=== PATIENT | female | born 1945 | race Caucasian/White ===

== ENCOUNTER 2016-12-27 10:36 | Inpatient (IN) | payer BC, MEDICARE ==
[2016-12-27] MEDS ORDERED: Metoprolol Tartrate 25 MG Tab PO ONE (10:45)
--- NOTE | 2016-12-27 11:36 | EDM.PDOC ---
ED HPI GENERAL MEDICAL PROBLEM - General Time Seen by Provider: 12/27/16 11:15 Source of Information: Reports: Patient History Limitations: Reports: No Limitations - History of Present Illness INITIAL COMMENTS - FREE TEXT/NARRATIVE: According to patient she claims that she has been short of breath for past 2 wks now. She has been feeling tired and weak. She used to be short of breath with exertion, but now feels SOB with minimal exertion. Also has been c/o right lower chest pain with deep breathing. Mild cough on and off. No fever or chills. No Wheezing, palpitations. No nausea or vomiting. Today she has been sweating a lot. As her symptoms have got gradually worse over the 2 wks, family has brought her into emergency room for workup. Pt has had lung cancer and has had right lower lung lobectomy and has been following up with Dr. Mathews. Her PCP is Dr. Pena. Duration: Week(s): (2) Severity: Mild Improves with: Reports: None Worsens with: Reports: None Associated Symptoms: Reports: Chest Pain, Shortness of Breath. Denies: Confusion, Cough, Fever/Chills, Nausea/Vomiting, Rash, Seizure ED ROS GENERAL - Review of Systems Review Of Systems: See Below Constitutional: Reports: Weakness, Fatigue. Denies: Fever, Chills HEENT: Denies: Throat Pain, Throat Swelling Respiratory: Reports: Shortness of Breath, Pleuritic Chest Pain, Cough. Denies : Wheezing, Sputum Cardiovascular: Denies: Chest Pain, Lightheadedness GI/Abdominal: Denies: Abdominal Pain, Hematochezia, Melena, Nausea, Vomiting : Denies: Dysuria, Flank Pain Musculoskeletal: Denies: Joint Pain, Joint Swelling Skin: Denies: Pruritis, Rash Neurological: Denies: Headache, Numbness, Tingling Psychiatric: Reports: Anxiety. Denies: Agitation, Confusion ED EXAM, GENERAL - Physical Exam Exam: See Below Exam Limited By: No Limitations General Appearance: Alert, WD/WN, No Apparent Distress, Anxious Eye Exam: Bilateral Eye: EOMI, PERRL Ears: Normal External Exam, Normal Canal, Hearing Grossly Normal, Normal TMs Ear Exam: Bilateral Ear: Auricle Normal, Canal Normal, TM normal Nose: Normal Inspection, Normal Mucosa, No Blood Throat/Mouth: Normal Inspection, Normal Lips, Normal Teeth, Normal Gums, Normal Oropharynx, Normal Voice, No Airway Compromise Head: Atraumatic, Normocephalic Neck: Normal Inspection, Supple, Non-Tender, Full Range of Motion Respiratory/Chest: No Respiratory Distress, Lungs Clear, No Accessory Muscle Use , Decreased Breath Sounds (right lower lobe and anterior chest), Other (tender over the right costal margin to pressure. no crepitus felt) Cardiovascular: Normal Peripheral Pulses, No Gallop, No JVD, No Murmur, No Rub, Tachycardia (130s) Peripheral Pulses: 2+: Radial (L), Radial (R) GI/Abdominal: Normal Bowel Sounds, Soft, Non-Tender, No Organomegaly, No Distention, No Abnormal Bruit, No Mass Extremities: Normal Inspection, Normal Range of Motion, Non-Tender, Normal Capillary Refill, Pedal Edema (1+ around the ankle pitting type) Skin Exam: Warm Course - Vital Signs Text/Narrative:: Pt's CBC shows white count of 13.2 and her Chest xray almeida show infiltrates in right middle lobe and upper lobe. Her BMP appears normal. Her EKG is in SInus tachy. Torponin is Negative. TSH normal. BNP mildly elevated, probably form her tachycardia. Pt had pneumonia with hypxia. Her SPO2 on room air is 91 %. She did receive lopressor 25mg once initially with concern of PSVT or WA. Family has been reassured and plan is to admit patient to hospital and start her on rocephin and zithromax regime. Incentive spirometry and deep breathing exercise. Also I do not have her pervious results and work up. But Her total bili is 3.6 , with raised ALT,AST and ALK. I am not sure if she is having metastatic lung cancer or has an intrinsic liver disease. Will plan CT abdomen and chest when patient is more stable. I have discussed this with family and patient. - Orders/Labs/Meds Orders: Active Orders 24 hr Category Date Time Status Patient Status [ADT] Routine ADT 12/27/16 12:19 Ordered Bedrest Bathroom Privileges [RC] ASDIRECTED Care 12/27/16 12:19 Ordered EKG Documentation Completion [RC] ASDIRECTED Care 12/27/16 11:30 Active Height and Weight [RC] UPON Care 12/27/16 12:19 Ordered Incentive Spirometry [RT Incentive Spirometry] [RC] Care 12/27/16 12:23 Ordered ASDIRECTED Intake and Output [RC] QSHIFT Care 12/27/16 12:21 Ordered Oxygen Therapy [RC] PRN Care 12/27/16 12:19 Ordered VTE/DVT Education [RC] Per Unit Routine Care 12/27/16 12:19 Ordered Vital Signs [RC] Q4H Care 12/27/16 12:19 Ordered Regular Diet [DIET] Diet 12/27/16 Lunch Ordered Chest 1V Frontal [CR] Stat Exams 12/27/16 11:30 Taken CBC WITH AUTO DIFF [HEME] Routine Lab 12/28/16 08:00 Ordered Azithromycin [Zithromax] 500 mg Med 12/27/16 12:30 Ordered Sodium Chloride 0.9% [Normal Saline] 250 ml IV Q24H Sodium Chloride 0.9% [Saline Flush] Med 12/27/16 12:19 Ordered 10 ml FLUSH ASDIRECTED PRN cefTRIAXone [Rocephin] 1 gm Med 12/27/16 13:00 Ordered Sodium Chloride 0.9% [Normal Saline] 50 ml IV Q12H guaiFENesin [Robitussin] Med 12/27/16 12:30 Ordered 400 mg PO Q6H Peripheral IV Insertion Adult [OM.PC] Routine Oth 12/27/16 12:19 Ordered Resuscitation Status Routine Resus Stat 12/27/16 12:19 Ordered Medication Orders Guaifenesin (Robitussin) 400 mg PO Q6H ESTER Azithromycin 500 mg/ Sodium (Chloride) 250 mls @ 250 mls/hr IV Q24H ESTER Ceftriaxone Sodium 1 gm/ (Sodium Chloride) 50 mls @ 100 mls/hr IV Q12H ESTER Sodium Chloride (Saline Flush) 10 ml FLUSH ASDIRECTED PRN PRN Reason: Keep Vein Open Labs: Laboratory Tests 12/27/16 12/27/16 12/27/16 Range/Units 11:42 11:42 11:42 WBC (4.0-11.0) K/uL RBC (3.80-5.80) M/uL Hgb (11.5-16.5) g/dL Hct (37.0-47.0) % MCV (76-96) fL MCH (27.0-32.0) pg MCHC (31.0-35.0) g/dL RDW (11.0-16.0) % Plt Count (150-500) K/uL MPV (6.0-10.0) fL Neut % (Auto) (45.0-70.0) % Lymph % (Auto) (20.0-40.0) % [place] % (Auto) (3.0-10.0) % Eos % (Auto) (1.0-5.0) % Baso % (Auto) (0.0-0.5) % Neut # (Auto) (2.00-7.50) K/uL Lymph # (Auto) (1.50-4.00) K/uL [place] # (Auto) (0.20-0.80) K/uL Eos # (Auto) (0.04-0.40) K/uL Baso # (Auto) (0.02-0.10) K/uL Sodium 137 (136-145) mmol/L Potassium 4.5 (3.5-5.1) mmol/L Chloride 101 (98-107) mmol/L Carbon Dioxide 26.8 (21.0-32.0) mmol/L Anion Gap 13.7 (5.0-15.0) mmol/L BUN 18 (8-26) mg/dL Creatinine 1.18 H (0.55-1.02) mg/dL Est Cr Clr Drug Dosing TNP Estimated GFR (MDRD) 45 L (>60) MLS/MIN BUN/Creatinine Ratio 15.3 (6-25) Glucose 123 H (74-100) mg/dL Calcium 10.2 H (8.5-10.1) mg/dL Total Bilirubin 3.6 H (0.0-1.0) mg/dL AST 240 H (15-37) U/L ALT 133 H (12-78) U/L Alkaline Phosphatase 438 H (46-116) U/L Troponin I < 0.017 (0.000-0.060) ng/mL B-Natriuretic Peptide 1010 H (0-125) pg/mL Total Protein 7.9 (6.4-8.2) g/dL Albumin 2.7 L (3.4-5.0) g/dL Globulin 5.2 H (2.2-4.2) g/dL Albumin/Globulin Ratio 0.5 L (0.8-2.0) TSH, Ultra Sensitive 2.578 (0.358-3.740) uIU/mL 12/27/16 Range/Units 11:44 WBC 13.2 H (4.0-11.0) K/uL RBC 5.25 (3.80-5.80) M/uL Hgb 16.3 (11.5-16.5) g/dL Hct 47.5 H (37.0-47.0) % MCV 91 (76-96) fL MCH 31.0 (27.0-32.0) pg MCHC 34.3 (31.0-35.0) g/dL RDW 14.2 (11.0-16.0) % Plt Count 131 L (150-500) K/uL MPV 10.3 H (6.0-10.0) fL Neut % (Auto) 84.0 H (45.0-70.0) % Lymph % (Auto) 11.1 L (20.0-40.0) % [place] % (Auto) 4.5 (3.0-10.0) % Eos % (Auto) 0.2 L (1.0-5.0) % Baso % (Auto) 0.2 (0.0-0.5) % Neut # (Auto) 11.09 H (2.00-7.50) K/uL Lymph # (Auto) 1.46 L (1.50-4.00) K/uL [place] # (Auto) 0.59 (0.20-0.80) K/uL Eos # (Auto) 0.02 L (0.04-0.40) K/uL Baso # (Auto) 0.02 (0.02-0.10) K/uL Sodium (136-145) mmol/L Potassium (3.5-5.1) mmol/L Chloride (98-107) mmol/L Carbon Dioxide (21.0-32.0) mmol/L Anion Gap (5.0-15.0) mmol/L BUN (8-26) mg/dL Creatinine (0.55-1.02) mg/dL Est Cr Clr Drug Dosing Estimated GFR (MDRD) (>60) MLS/MIN BUN/Creatinine Ratio (6-25) Glucose (74-100) mg/dL Calcium (8.5-10.1) mg/dL Total Bilirubin (0.0-1.0) mg/dL AST (15-37) U/L ALT (12-78) U/L Alkaline Phosphatase (46-116) U/L Troponin I (0.000-0.060) ng/mL B-Natriuretic Peptide (0-125) pg/mL Total Protein (6.4-8.2) g/dL Albumin (3.4-5.0) g/dL Globulin (2.2-4.2) g/dL Albumin/Globulin Ratio (0.8-2.0) TSH, Ultra Sensitive (0.358-3.740) uIU/mL Meds: Medications Generic Name Dose Route Start Last Admin Trade Name Freq PRN Reason Stop Dose Admin Guaifenesin 400 mg 12/27/16 12:30 Robitussin PO Q6H ESTER Azithromycin 500 mg/ Sodium 250 mls @ 250 mls/hr 12/27/16 12:30 Chloride IV Q24H ESTER Ceftriaxone Sodium 1 gm/ 50 mls @ 100 mls/hr 12/27/16 13:00 Sodium Chloride IV Q12H ESTER Sodium Chloride 10 ml 12/27/16 12:19 Saline Flush FLUSH ASDIRECTED PRN Keep Vein Open Departure - Departure Time of Disposition: 12:30 Disposition: Admitted As Inpatient 66 Condition: Fair Clinical Impression: Pneumonia, Liver function abnormality - Discharge Information - Problem List & Annotations (1) Liver function abnormality SNOMED Code(s): 31414369 Code(s): K76.89 - OTHER SPECIFIED DISEASES OF LIVER Status: Acute Current Visit: Yes (2) Pneumonia SNOMED Code(s): 662318796 Code(s): J18.9 - PNEUMONIA, UNSPECIFIED ORGANISM Status: Acute Current Visit: Yes - Problem List Review Problem List Initiated/Reviewed/Updated: Yes - My Orders Last 24 Hours: My Active Orders 12/27/16 11:30 EKG Documentation Completion [RC] ASDIRECTED Chest 1V Frontal [CR] Stat 12/27/16 12:19 Patient Status [ADT] Routine Bedrest Bathroom Privileges [RC] ASDIRECTED Height and Weight [RC] UPON Oxygen Therapy [RC] PRN VTE/DVT Education [RC] Per Unit Routine Vital Signs [RC] Q4H Sodium Chloride 0.9% [Saline Flush] 10 ml FLUSH ASDIRECTED PRN Peripheral IV Insertion Adult [OM.PC] Routine Resuscitation Status Routine 12/27/16 12:21 Intake and Output [RC] QSHIFT 12/27/16 12:23 Incentive Spirometry [RT Incentive Spirometry] [RC] ASDIRECTED 12/27/16 12:30 Azithromycin [Zithromax] 500 mg Sodium Chloride 0.9% [Normal Saline] 250 ml IV Q24H guaiFENesin [Robitussin] 400 mg PO Q6H 12/27/16 13:00 cefTRIAXone [Rocephin] 1 gm Sodium Chloride 0.9% [Normal Saline] 50 ml IV Q12H 12/27/16 Lunch Regular Diet [DIET] 12/28/16 08:00 CBC WITH AUTO DIFF [HEME] Routine - Assessment/Plan Last 24 Hours: My Active Orders 12/27/16 11:30 EKG Documentation Completion [RC] ASDIRECTED Chest 1V Frontal [CR] Stat 12/27/16 12:19 Patient Status [ADT] Routine Bedrest Bathroom Privileges [RC] ASDIRECTED Height and Weight [RC] UPON Oxygen Therapy [RC] PRN VTE/DVT Education [RC] Per Unit Routine Vital Signs [RC] Q4H Sodium Chloride 0.9% [Saline Flush] 10 ml FLUSH ASDIRECTED PRN Peripheral IV Insertion Adult [OM.PC] Routine Resuscitation Status Routine 12/27/16 12:21 Intake and Output [RC] QSHIFT 12/27/16 12:23 Incentive Spirometry [RT Incentive Spirometry] [RC] ASDIRECTED 12/27/16 12:30 Azithromycin [Zithromax] 500 mg Sodium Chloride 0.9% [Normal Saline] 250 ml IV Q24H guaiFENesin [Robitussin] 400 mg PO Q6H 12/27/16 13:00 cefTRIAXone [Rocephin] 1 gm Sodium Chloride 0.9% [Normal Saline] 50 ml IV Q12H 12/27/16 Lunch Regular Diet [DIET] 12/28/16 08:00 CBC WITH AUTO DIFF [HEME] Routine Assessment:: Right sided pneumonia With altered liver functions Plan: Pt's CBC shows white count of 13.2 and her Chest xray almeida show infiltrates in right middle lobe and upper lobe. Her BMP appears normal. Her EKG is in SInus tachy. Torponin is Negative. TSH normal. BNP mildly elevated, probably form her tachycardia. Pt had pneumonia with hypxia. Her SPO2 on room air is 91 %. She did receive lopressor 25mg once initially with concern of PSVT or WA.Family has been reassured and plan is to admit patient to hospital and start her on rocephin and zithromax regime. Incentive spirometry and deep breathing exercise. Also I do not have her pervious results and work up. But Her total bili is 3.6 , with raised ALT,AST and ALK. I am not sure if she is having metastatic lung cancer or has an intrinsic liver disease. Will plan CT abdomen and chest when patient is more stable. I have discussed this with family and patient.
[2016-12-27] MEDS ORDERED: Sodium Chloride 0.9% 10 ML Syringe FLUSH PRN (12:19)
[2016-12-27] MEDS ORDERED: Azithromycin 500 MG in Sodium Chloride 0.9% 250 ML IV SCH ×2 (12:30→14:00)
[2016-12-27] MEDS ORDERED: guaiFENesin 100 MG/5 ML Soln 10 ML UD Cup PO SCH (12:30)
[2016-12-27] MEDS ORDERED: cefTRIAXone 1 GM in Sodium Chloride 0.9% 50 ML IV SCH (13:00)
[2016-12-27] MEDS ORDERED: cefTRIAXone 1 GM in Sodium Chloride 0.9% 100 ML IV SCH ×2 (13:51→14:00)
[2016-12-27] MEDS: cefTRIAXone 1 GM in Sodium Chloride 0.9% 100 ML IV SCH (14:35)
[2016-12-27] MEDS ORDERED: guaiFENesin 100 MG/5 ML Soln 10 ML UD Cup PO PRN (15:00)
--- NOTE | 2016-12-27 17:46 | CR ---
DATE OF SERVICE: 12/27/16 CLINICAL DATA: Shortness of breath AP PORTABLE CHEST: Comparison is made to a prior exam dated 06/04/05. There are surgical changes in the right hemithorax. There is marked eventration of the right hemidiaphragm. There is infiltrate and consolidation in the right lower lung. Pneumonia should be considered. There is mild increased density in the left lung base adjacent to the left hemidiaphragm consistent with basilar atelectasis or infiltrate. The left lung is otherwise clear. There is blunting of the right costophrenic angle consistent with a small right pleural effusion. The exam is otherwise unchanged from the prior. [id number] [facility]
[2016-12-27] MEDS: Acetaminophen/HYDROcodone 325-10 MG Tab PO PRN (18:19)
[2016-12-27] MEDS ORDERED: Diclofenac Sodium 1% Gel 100 GM Tube TOP SCH (20:00)
[2016-12-27] MEDS: Pravastatin 40 MG Tab PO SCH (20:08)
[2016-12-27] MEDS: Amitriptyline 25 MG Tab PO SCH (20:08)
[2016-12-27] MEDS: Fluticasone/Salmeterol 500-50 MCG Inhalation Powder 14/Diskus INH SCH (20:08)
[2016-12-27] MEDS: LORazepam 1 MG Tab PO PRN (22:21)
[2016-12-28] MEDS: Omeprazole 40 MG Cap.CR PO SCH (06:21)
[2016-12-28] MEDS: cefTRIAXone 1 GM in Sodium Chloride 0.9% 100 ML IV SCH ×2 (07:37→20:03)
[2016-12-28] MEDS: Calcium Carbonate/Vitamin D3 1500 MG-400 Units Tab PO SCH (07:50)
[2016-12-28] MEDS: Multivitamins with Iron/Calcium/Folic Acid/Minerals Tab PO SCH (07:50)
[2016-12-28] MEDS: Roflumilast 500 MCG Tab PO SCH (07:51)
[2016-12-28] MEDS: Aspirin 81 MG Tab.EC PO SCH (07:51)
[2016-12-28] MEDS: Fluticasone/Salmeterol 500-50 MCG Inhalation Powder 14/Diskus INH SCH ×2 (07:52→19:59)
[2016-12-28] MEDS: Tiotropium Inhaler 18 MCG Inhalation Powder Cap Kit of 5 INH SCH (07:52)
[2016-12-28] MEDS: Sertraline 100 MG Tab PO SCH (07:53)
[2016-12-28] MEDS ORDERED: Sertraline 50 MG Tab PO SCH (08:00)
[2016-12-28] MEDS: Azithromycin 500 MG in Sodium Chloride 0.9% 250 ML IV SCH (08:49)
[2016-12-28] MEDS ORDERED: Metoprolol Tartrate 25 MG Tab ONE (09:04)
[2016-12-28] MEDS: Metoprolol Tartrate 25 MG Tab PO SCH ×2 (09:25→20:02)
--- NOTE | 2016-12-28 10:37 | PCM.PN ---
- General Info Date of Service: 12/28/16 Subjective Update: Pt claims she feels better than yesterday, still tired and feels SOB with exertion. Her heart rate is in 120-130s. No fever. Has been able to do 1000ccs on incentive spirometry. HAs vague pain in right upper quadrant. Has been tolerating oral diet well. On Iv zithromax and rocpehin. Functional Status: Reports: Pain Controlled, Tolerating Diet, Ambulating, Urinating, Incentive Spirometry - Review of Systems General: Reports: Weakness, Fatigue. Denies: Fever, Night Sweats HEENT: Denies: Headaches, Sinus Congestion Pulmonary: Reports: Shortness of Breath, Cough Cardiovascular: Denies: Chest Pain, Lightheadedness Gastrointestinal: Reports: Abdominal Pain (RUQ). Denies: Nausea, Vomiting Genitourinary: Denies: Dysuria, Frequency Musculoskeletal: Denies: Joint Pain, Joint Swelling Skin: Denies: Pruritis, Rash Neurological: Denies: Confusion, Dizziness, Headache - Patient Data Vitals - Most Recent: Last Vital Signs Temp 97.6 F 12/28/16 08:00 Pulse 130 H 12/28/16 08:00 Resp 20 12/28/16 08:00 BP 124/61 12/28/16 08:00 Pulse Ox 95 12/28/16 08:00 Weight - Most Recent: 73.936 kg I&O - Last 24 Hours: Intake & Output 12/27/16 12/28/16 12/28/16 22:59 06:59 14:59 Intake Total 350 520 Output Total 0 Balance 350 520 Lab Results Last 24 Hours: Laboratory Results - last 24 hr 12/28/16 Range/Units 09:10 WBC 11.0 (4.0-11.0) K/uL RBC 4.61 (3.80-5.80) M/uL Hgb 14.5 (11.5-16.5) g/dL Hct 42.2 (37.0-47.0) % MCV 92 (76-96) fL MCH 31.5 (27.0-32.0) pg MCHC 34.4 (31.0-35.0) g/dL RDW 14.5 (11.0-16.0) % Plt Count 120 L (150-500) K/uL MPV 10.4 H (6.0-10.0) fL Neut % (Auto) 82.1 H (45.0-70.0) % Lymph % (Auto) 12.8 L (20.0-40.0) % Gem % (Auto) 4.4 (3.0-10.0) % Eos % (Auto) 0.4 L (1.0-5.0) % Baso % (Auto) 0.3 (0.0-0.5) % Neut # (Auto) 9.06 H (2.00-7.50) K/uL Lymph # (Auto) 1.41 L (1.50-4.00) K/uL Gem # (Auto) 0.48 (0.20-0.80) K/uL Eos # (Auto) 0.04 (0.04-0.40) K/uL Baso # (Auto) 0.03 (0.02-0.10) K/uL Med Orders - Current: Current Medications Hydrocodone Bitart/Acetaminophen ([place] 325-10 Mg) 1 tab PO Q6H PRN PRN Reason: MODERATE PAIN Last Admin: 12/27/16 18:19 Dose: 1 tab Albuterol (Ventolin Hfa) 8 gm INH Q4H PRN PRN Reason: Shortness of Breath Amitriptyline HCl (Elavil) 100 mg PO BEDTIME [facility] Last Admin: 12/27/16 20:08 Dose: 100 mg Aspirin (Halfprin) 81 mg PO DAILY [facility] Last Admin: 12/28/16 07:51 Dose: 81 mg Calcium Carbonate (Caltrate 600+D 1500 Mg-400 Units) 1 tab PO DAILY ESTER Last Admin: 12/28/16 07:50 Dose: 1 tab Guaifenesin (Robitussin) 400 mg PO Q6H PRN PRN Reason: cough Azithromycin 500 mg/ Sodium (Chloride) 250 mls @ 250 mls/hr IV DAILY ESTER Last Admin: 12/28/16 08:49 Dose: 250 mls/hr Ceftriaxone Sodium 1 gm/ (Sodium Chloride) 100 mls @ 200 mls/hr IV BID ESTER Last Admin: 12/28/16 07:37 Dose: 200 mls/hr Lorazepam (Ativan) 1 mg PO BEDTIME PRN PRN Reason: Sleep Last Admin: 12/27/16 22:21 Dose: 1 mg Metoprolol Tartrate (Lopressor) 25 mg PO Q12HR [facility] Multivitamins/Minerals (Thera M Plus) 1 tab PO DAILY [facility] Last Admin: 12/28/16 07:50 Dose: 1 tab Nystatin (Mycostatin) 5 ml PO QID [facility] Omeprazole (Omeprazole) 40 mg PO ACBREAKFAST [facility] Last Admin: 12/28/16 06:21 Dose: 40 mg Pravastatin Sodium (Pravachol) 80 mg PO BEDTIME [facility] Last Admin: 12/27/16 20:08 Dose: 80 mg Roflumilast (Daliresp) 500 mcg PO DAILY [facility] Last Admin: 12/28/16 07:51 Dose: 500 mcg Fluticasone/Salmeterol (Advair Diskus 500-50) 1 puff INH BID [facility] Last Admin: 12/28/16 07:52 Dose: 1 puff Sertraline HCl (Zoloft) 100 mg PO DAILY [facility] Last Admin: 12/28/16 07:53 Dose: 100 mg Sodium Chloride (Saline Flush) 10 ml FLUSH ASDIRECTED PRN PRN Reason: Keep Vein Open Tiotropium [place] (Spiriva Handihaler) 18 mcg INH DAILY [facility] Last Admin: 12/28/16 07:52 Dose: 1 inhalation Discontinued Medications Diclofenac Sodium (Voltaren 1% Gel) 100 gm TOP BID [facility] Guaifenesin (Robitussin) 400 mg PO Q6H [facility] Last Admin: 12/27/16 15:33 Dose: Not Given Azithromycin 500 mg/ Sodium (Chloride) 250 mls @ 250 mls/hr IV Q24H [facility] Last Admin: 12/27/16 15:33 Dose: Not Given Ceftriaxone Sodium 1 gm/ (Sodium Chloride) 50 mls @ 100 mls/hr IV Q12H [facility] Last Admin: 12/27/16 15:33 Dose: Not Given Ceftriaxone Sodium 1 gm/ (Sodium Chloride) 100 mls @ 200 mls/hr IV Q12H [facility] Last Admin: 12/27/16 15:33 Dose: Not Given Azithromycin 500 mg/ Sodium (Chloride) 250 mls @ 250 mls/hr IV ASDIRECTED [facility] Stop: 12/27/16 18:00 Last Admin: 12/27/16 15:15 Dose: 250 mls/hr Ceftriaxone Sodium 1 gm/ (Sodium Chloride) 100 mls @ 200 mls/hr IV ASDIRECTED [facility] Stop: 12/27/16 18:00 Last Admin: 12/27/16 14:35 Dose: 200 mls/hr Metoprolol Tartrate (Lopressor) 25 mg PO ONETIME ONE Stop: 12/27/16 10:46 Last Admin: 12/27/16 10:45 Dose: 25 mg Metoprolol Tartrate (Lopressor) Confirm Administered Dose 25 mg .ROUTE .STK-MED ONE Stop: 12/28/16 09:05 Sertraline HCl (Zoloft) 50 mg PO DAILY ESTER - Exam Quality Assessment: Supplemental Oxygen General: Alert, Oriented HEENT: Pupils Equal, Pupils Reactive, EOMI, Mucous Membr. Moist/[place], Other ( there is oral thrush seen over the buccal mucosa) Neck: Supple Lungs: Normal Respiratory Effort, Decreased Breath Sounds (right lower chest and right anterior chest) Cardiovascular: Regular Rhythm, Tachycardia GI/Abdominal Exam: Normal Bowel Sounds, Soft, No Organomegaly, Tender (Right upper quadrant). No: Guarding, Rigid, Rebound Extremities: Normal Inspection, Normal Range of Motion, Pedal Edema (1+ piting type) - Problem List & Annotations (1) Liver function abnormality SNOMED Code(s): 33651235 Code(s): K76.89 - OTHER SPECIFIED DISEASES OF LIVER Status: Acute Current Visit: Yes (2) Pneumonia SNOMED Code(s): 715343003 Code(s): J18.9 - PNEUMONIA, UNSPECIFIED ORGANISM Status: Acute Current Visit: Yes - Problem List Review Problem List Initiated/Reviewed/Updated: Yes - My Orders Last 24 Hours: My Active Orders 12/27/16 12:23 Incentive Spirometry [RT Incentive Spirometry] [RC] ASDIRECTED 12/27/16 14:29 Albuterol [Ventolin HFA] 8 gm INH Q4H PRN 12/27/16 14:31 Acetaminophen/HYDROcodone [[place] 325-10 MG] 1 tab PO Q6H PRN 12/27/16 15:00 guaiFENesin [Robitussin] 400 mg PO Q6H PRN 12/27/16 16:44 CULTURE MRSA SURVEY [RM] Routine 12/27/16 20:00 Amitriptyline [Elavil] 100 mg PO BEDTIME Fluticasone/Salmeterol [Advair Diskus 500-50] 1 puff INH BID LORazepam [Ativan] 1 mg PO BEDTIME PRN Pravastatin [Pravachol] 80 mg PO BEDTIME 12/28/16 07:00 Omeprazole 40 mg PO ACBREAKFAST 12/28/16 08:00 Aspirin [Halfprin] 81 mg PO DAILY Calcium Carbonate/Vitamin D3 [Caltrate 600+D 1500 MG-400 Units] 1 tab PO DAILY Multivitamins w-Iron/Ca/FA/Min [Thera M Plus] 1 tab PO DAILY Roflumilast [Daliresp] 500 mcg PO DAILY Sertraline [Zoloft] 100 mg PO DAILY Tiotropium [Spiriva HandiHaler] 18 mcg INH DAILY cefTRIAXone [Rocephin] 1 gm Sodium Chloride 0.9% [Normal Saline] 100 ml IV BID 12/28/16 08:30 Azithromycin [Zithromax] 500 mg Sodium Chloride 0.9% [Normal Saline] 250 ml IV DAILY 12/28/16 10:09 Chest Abdomen Pelvis wo Cont [CT] Routine 12/28/16 10:15 Metoprolol Tartrate [Lopressor] 25 mg PO Q12HR Nystatin [Mycostatin] 5 ml PO QID - Assessment Assessment:: Right sided pneumonia Altered liver function with Right upper quadrant pain. - Plan Plan:: 1) Pt claims that she feels slightly better than yesterday. Has had very minimal cough. Sputum is mucoid whitish and minimal.No hemoptysis. Still feels SOB with exertion and tired. On Iv antibiotics. 2) Pt does have right upper quadrant tenderness with significantly altered liver function. Her total bilirubin is elevated. Her Transaminases are very high and her Alk phos is elevated with altered AG ratio. Pt claims she was told everything is fine, and has had followup with her devil dog. With her history of right sided lung cancer and large right lung opacity, with RUQ pain, I am concerned if we care missing metastatic liver disease here. Pt is new to this hospital and most of her care until now has been through in [place] and this is long weekend to get any of her record form her devil dog and PCP.Hence I have ordered her CT chest and abdomen for further workup of the clinical findings. Also she is in sinus tachycardia. HAve started her on lopressor 25mg po BID. Nystatin swish and swallow for the oral thrush.
[2016-12-28] MEDS: Acetaminophen/HYDROcodone 325-10 MG Tab PO PRN (13:30)
[2016-12-28] MEDS: Nystatin Susp 100,000 Unit/ML 5 ML UD Cup PO SCH ×4 (15:37→20:02)
[2016-12-28] MEDS: oxyCODONE 5 MG Tab PO PRN ×2 (16:00→21:50)
[2016-12-28] MEDS ORDERED: Albuterol/Ipratropium 3.0-0.5 MG/3 ML Neb Soln NEB ONE (16:58)
[2016-12-28] MEDS ORDERED: Albuterol/Ipratropium 3.0-0.5 MG/3 ML Neb Soln ONE (17:01)
[2016-12-28] MEDS: Pravastatin 40 MG Tab PO SCH (20:00)
[2016-12-28] MEDS: Amitriptyline 25 MG Tab PO SCH (20:00)
[2016-12-28] MEDS: LORazepam 1 MG Tab PO PRN (21:51)
[2016-12-29] MEDS: Tiotropium Inhaler 18 MCG Inhalation Powder Cap Kit of 5 INH SCH (07:46)
[2016-12-29] MEDS: Omeprazole 40 MG Cap.CR PO SCH (07:46)
[2016-12-29] MEDS: cefTRIAXone 1 GM in Sodium Chloride 0.9% 100 ML IV SCH ×2 (07:47→20:30)
[2016-12-29] MEDS: Multivitamins with Iron/Calcium/Folic Acid/Minerals Tab PO SCH (08:41)
[2016-12-29] MEDS: Metoprolol Tartrate 25 MG Tab PO SCH ×2 (08:41→20:29)
[2016-12-29] MEDS: Roflumilast 500 MCG Tab PO SCH (08:41)
[2016-12-29] MEDS: Sertraline 100 MG Tab PO SCH (08:42)
[2016-12-29] MEDS: Aspirin 81 MG Tab.EC PO SCH (08:42)
[2016-12-29] MEDS: Calcium Carbonate/Vitamin D3 1500 MG-400 Units Tab PO SCH (08:42)
[2016-12-29] MEDS: Fluticasone/Salmeterol 500-50 MCG Inhalation Powder 14/Diskus INH SCH ×2 (08:42→20:38)
[2016-12-29] MEDS: Nystatin Susp 100,000 Unit/ML 5 ML UD Cup PO SCH ×4 (08:42→20:39)
[2016-12-29] MEDS: Azithromycin 500 MG in Sodium Chloride 0.9% 250 ML IV SCH (08:43)
--- NOTE | 2016-12-29 10:59 | PCM.PN ---
- General Info Date of Service: 12/29/16 Subjective Update: Pt is feeling better. No fever. She does feels shortness of breath with exertion. Coughing some with clear mucoid sputum. Does need Oxygen at 2-3 litres to keep her sats over 92%. Feels better then yesterday. Functional Status: Reports: Pain Controlled, Tolerating Diet, Ambulating, Urinating, Incentive Spirometry - Review of Systems General: Denies: Fever, Weakness Pulmonary: Reports: Shortness of Breath, Cough, Sputum. Denies: Pleuritic Chest Pain, Wheezing Cardiovascular: Denies: Chest Pain, Lightheadedness Gastrointestinal: Reports: Abdominal Pain (right upper quadrant). Denies: Nausea, Vomiting Genitourinary: Denies: Dysuria, Frequency, Burning Musculoskeletal: Denies: Joint Pain, Joint Swelling Skin: Denies: Pruritis, Rash - Patient Data Vitals - Most Recent: Last Vital Signs Temp 97.6 F 12/29/16 08:00 Pulse 107 H 12/29/16 10:28 Resp 18 12/29/16 10:28 BP 120/68 12/29/16 10:28 Pulse Ox 93 L 12/29/16 10:28 Weight - Most Recent: 73.936 kg I&O - Last 24 Hours: Intake & Output 12/28/16 12/29/16 12/29/16 22:59 06:59 14:59 Intake Total 100 570 Output Total 425 Balance 100 145 Lab Results Last 24 Hours: Laboratory Results - last 24 hr 12/28/16 12/29/16 Range/Units Unknown 08:45 WBC 11.0 (4.0-11.0) K/uL RBC 4.44 (3.80-5.80) M/uL Hgb 13.8 (11.5-16.5) g/dL Hct 40.2 (37.0-47.0) % MCV 91 (76-96) fL MCH 31.1 (27.0-32.0) pg MCHC 34.3 (31.0-35.0) g/dL RDW 14.5 (11.0-16.0) % Plt Count 107 L (150-500) K/uL MPV 9.7 (6.0-10.0) fL Neut % (Auto) 77.4 H (45.0-70.0) % Lymph % (Auto) 17.0 L (20.0-40.0) % [place] % (Auto) 4.9 (3.0-10.0) % Eos % (Auto) 0.5 L (1.0-5.0) % Baso % (Auto) 0.2 (0.0-0.5) % Neut # (Auto) 8.48 H (2.00-7.50) K/uL Lymph # (Auto) 1.86 (1.50-4.00) K/uL [place] # (Auto) 0.54 (0.20-0.80) K/uL Eos # (Auto) 0.06 (0.04-0.40) K/uL Baso # (Auto) 0.02 (0.02-0.10) K/uL Urine Color Other Urine Appearance Clear (CLEAR) Urine pH 5.5 (5.0-8.0) Ur Specific [place] 1.025 (1.003-1.030) Urine Protein Trace H (NEGATIVE) mg/dL Urine Glucose (UA) Negative (NEGATIVE) mg/dL Urine Ketones Negative (NEGATIVE) mg/dL Urine Occult Blood Negative (NEGATIVE) Urine Nitrite Positive H (NEGATIVE) Urine Bilirubin Moderate H (NEGATIVE) Urine Urobilinogen 0.2 (0.2-1.0) E.U./dL Ur Leukocyte Esterase Trace H (NEGATIVE) Urine RBC Not seen /HPF Urine WBC 0-5 H /HPF Ur Squamous Epith Cells Few /HPF Urine Bacteria Moderate H /HPF [place]pe Results Last 24 Hours: Microbiology 12/28/16 09:10 MRSA Surveillance Culture - Final Nose, Unspecified NO MRSA ISOLATED Med Orders - Current: Current Medications Albuterol (Ventolin Hfa) 8 gm INH Q4H PRN PRN Reason: Shortness of Breath Amitriptyline HCl (Elavil) 100 mg PO BEDTIME [facility] Last Admin: 12/28/16 20:00 Dose: 100 mg Aspirin (Halfprin) 81 mg PO DAILY [facility] Last Admin: 12/29/16 08:42 Dose: 81 mg Calcium Carbonate (Caltrate 600+D 1500 Mg-400 Units) 1 tab PO DAILY [facility] Last Admin: 12/29/16 08:42 Dose: 1 tab Guaifenesin (Robitussin) 400 mg PO Q6H PRN PRN Reason: cough Azithromycin 500 mg/ Sodium (Chloride) 250 mls @ 250 mls/hr IV DAILY [facility] Last Admin: 12/29/16 08:43 Dose: 250 mls/hr Ceftriaxone Sodium 1 gm/ (Sodium Chloride) 100 mls @ 200 mls/hr IV BID [facility] Last Admin: 12/29/16 07:47 Dose: 200 mls/hr Lorazepam (Ativan) 1 mg PO BEDTIME PRN PRN Reason: Sleep Last Admin: 12/28/16 21:51 Dose: 1 mg Metoprolol Tartrate (Lopressor) 25 mg PO Q12HR [facility] Last Admin: 12/29/16 08:41 Dose: 25 mg Multivitamins/Minerals (Thera M Plus) 1 tab PO DAILY [facility] Last Admin: 12/29/16 08:41 Dose: 1 tab Nystatin (Mycostatin) 5 ml PO QID [facility] Last Admin: 12/29/16 08:42 Dose: 5 ml Omeprazole (Omeprazole) 40 mg PO ACBREAKFAST [facility] Last Admin: 12/29/16 07:46 Dose: 40 mg Oxycodone HCl (Oxycodone) 5 mg PO Q6H PRN PRN Reason: Pain Last Admin: 12/28/16 21:50 Dose: 5 mg Pravastatin Sodium (Pravachol) 80 mg PO BEDTIME [facility] Last Admin: 12/28/16 20:00 Dose: 80 mg Roflumilast (Daliresp) 500 mcg PO DAILY [facility] Last Admin: 12/29/16 08:41 Dose: 500 mcg Fluticasone/Salmeterol (Advair Diskus 500-50) 1 puff INH BID [facility] Last Admin: 12/29/16 08:42 Dose: 1 puff Sertraline HCl (Zoloft) 100 mg PO DAILY [facility] Last Admin: 12/29/16 08:42 Dose: 100 mg Sodium Chloride (Saline Flush) 10 ml FLUSH ASDIRECTED PRN PRN Reason: Keep Vein Open Tiotropium [place] (Spiriva Handihaler) 18 mcg INH DAILY [facility] Last Admin: 12/29/16 07:46 Dose: 1 inhalation Discontinued Medications Hydrocodone Bitart/Acetaminophen ([place] 325-10 Mg) 1 tab PO Q6H PRN PRN Reason: MODERATE PAIN Last Admin: 12/28/16 13:30 Dose: 1 tab Albuterol/Ipratropium (Duoneb 3.0-0.5 Mg/3 Ml) 3 ml NEB ONETIME ONE Stop: 12/28/16 16:59 Last Admin: 12/28/16 17:09 Dose: 3 ml Albuterol/Ipratropium (Duoneb 3.0-0.5 Mg/3 Ml) Confirm Administered Dose 3 ml .ROUTE .STK-MED ONE Stop: 12/28/16 17:02 Last Admin: 12/28/16 17:08 Dose: Not Given Diclofenac Sodium (Voltaren 1% Gel) 100 gm TOP BID [facility] Guaifenesin (Robitussin) 400 mg PO Q6H [facility] Last Admin: 12/27/16 15:33 Dose: Not Given Azithromycin 500 mg/ Sodium (Chloride) 250 mls @ 250 mls/hr IV Q24H [facility] Last Admin: 12/27/16 15:33 Dose: Not Given Ceftriaxone Sodium 1 gm/ (Sodium Chloride) 50 mls @ 100 mls/hr IV Q12H [facility] Last Admin: 12/27/16 15:33 Dose: Not Given Ceftriaxone Sodium 1 gm/ (Sodium Chloride) 100 mls @ 200 mls/hr IV Q12H [facility] Last Admin: 12/27/16 15:33 Dose: Not Given Azithromycin 500 mg/ Sodium (Chloride) 250 mls @ 250 mls/hr IV ASDIRECTED [facility] Stop: 12/27/16 18:00 Last Admin: 12/27/16 15:15 Dose: 250 mls/hr Ceftriaxone Sodium 1 gm/ (Sodium Chloride) 100 mls @ 200 mls/hr IV ASDIRECTED [facility] Stop: 12/27/16 18:00 Last Admin: 12/27/16 14:35 Dose: 200 mls/hr Metoprolol Tartrate (Lopressor) 25 mg PO ONETIME ONE Stop: 12/27/16 10:46 Last Admin: 12/27/16 10:45 Dose: 25 mg Metoprolol Tartrate (Lopressor) Confirm Administered Dose 25 mg .ROUTE .STK-MED ONE Stop: 12/28/16 09:05 Last Admin: 12/28/16 17:41 Dose: Not Given Sertraline HCl (Zoloft) 50 mg PO DAILY [facility] - Exam Quality Assessment: Supplemental Oxygen General: Alert, Oriented HEENT: Pupils Equal, Pupils Reactive, EOMI, Mucous Membr. Moist/[place] Neck: Supple Lungs: Normal Respiratory Effort, Decreased Breath Sounds (right chest). No: Rhonchi, Wheezing Cardiovascular: Regular Rhythm, Tachycardia (heart rate is 110) GI/Abdominal Exam: Normal Bowel Sounds, Soft, Non-Tender, No Organomegaly, No Distention, No Abnormal Bruit, No Mass, Pelvis Stable Extremities: Normal Inspection, Normal Range of Motion, Pedal Edema (1+) - Problem List & Annotations (1) Liver function abnormality SNOMED Code(s): 86810440 Code(s): K76.89 - OTHER SPECIFIED DISEASES OF LIVER Status: Acute Current Visit: Yes (2) Pneumonia SNOMED Code(s): 956521846 Code(s): J18.9 - PNEUMONIA, UNSPECIFIED ORGANISM Status: Acute Current Visit: Yes - Problem List Review Problem List Initiated/Reviewed/Updated: Yes - My Orders Last 24 Hours: My Active Orders 12/28/16 10:09 Chest Abdomen Pelvis wo Cont [CT] Routine 12/28/16 10:15 Metoprolol Tartrate [Lopressor] 25 mg PO Q12HR Nystatin [Mycostatin] 5 ml PO QID 12/28/16 15:47 oxyCODONE 5 mg PO Q6H PRN 12/28/16 16:58 RT Aerosol Therapy [RC] ASDIRECTED - Assessment Assessment:: Right sided pneumonia Altered liver function with Right upper quadrant pain. - Plan Plan:: 12/28/16: 1) Pt claims that she feels slightly better than yesterday. Has had very minimal cough. Sputum is mucoid whitish and minimal.No hemoptysis. Still feels SOB with exertion and tired. On Iv antibiotics. 2) Pt does have right upper quadrant tenderness with significantly altered liver function. Her total bilirubin is elevated. Her Transaminases are very high and her Alk phos is elevated with altered AG ratio. Pt claims she was told everything is fine, and has had followup with her emt paramedic. With her history of right sided lung cancer and large right lung opacity, with RUQ pain, I am concerned if we care missing metastatic liver disease here. Pt is new to this hospital and most of her care until now has been through in [place] and this is long weekend to get any of her record form her emt paramedic and PCP.Hence I have ordered her CT chest and abdomen for further workup of the clinical findings. Also she is in sinus tachycardia. Have started her on lopressor 25mg po BID. Nystatin swish and swallow for the oral thrush. 12/29/16 Pt is feeling better. White count and neutrophils are improving. She might have restrictive lung disease along with pneumonia. Her CT chest and abdomen yesterday shows a 4cm mediastinal lymph nodes and her liver is slightly enlarged. There could me metastatic mediastinal node. Considering her elevated LFTs, I have ordered HBSAG and Hep C antibody. Will followup. I will try to get hold of her emt paramedic tomorrow.
[2016-12-29] MEDS: Pravastatin 40 MG Tab PO SCH (20:27)
[2016-12-29] MEDS: Amitriptyline 25 MG Tab PO SCH (20:28)
[2016-12-29] MEDS: Albuterol 8 GM Inhaler INH PRN ×2 (20:30→23:32)
[2016-12-29] MEDS: oxyCODONE 5 MG Tab PO PRN (23:27)
[2016-12-29] MEDS: LORazepam 1 MG Tab PO PRN (23:27)
[2016-12-30] MEDS: Omeprazole 40 MG Cap.CR PO SCH (06:46)
[2016-12-30] MEDS ORDERED: Morphine 2 MG/ML Syringe ONE ×2 (07:32→08:00)
[2016-12-30] MEDS ORDERED: Albuterol/Ipratropium 3.0-0.5 MG/3 ML Neb Soln ONE ×2 (07:33→08:00)
[2016-12-30] MEDS ORDERED: Albuterol/Ipratropium 3.0-0.5 MG/3 ML Neb Soln NEB PRN (07:46)
[2016-12-30] MEDS ORDERED: Morphine 2 MG/ML Syringe IVPUSH SCH (08:00)
[2016-12-30] MEDS: Metoprolol Tartrate 25 MG Tab PO SCH (08:09)
[2016-12-30] MEDS: Nystatin Susp 100,000 Unit/ML 5 ML UD Cup PO SCH (08:12)
[2016-12-30] MEDS: Multivitamins with Iron/Calcium/Folic Acid/Minerals Tab PO SCH (08:12)
[2016-12-30] MEDS: Aspirin 81 MG Tab.EC PO SCH (08:12)
[2016-12-30] MEDS: Roflumilast 500 MCG Tab PO SCH (08:12)
[2016-12-30] MEDS: Calcium Carbonate/Vitamin D3 1500 MG-400 Units Tab PO SCH (08:13)
[2016-12-30] MEDS: Sertraline 100 MG Tab PO SCH (08:13)
[2016-12-30] MEDS: Tiotropium Inhaler 18 MCG Inhalation Powder Cap Kit of 5 INH SCH (08:14)
[2016-12-30] MEDS: Fluticasone/Salmeterol 500-50 MCG Inhalation Powder 14/Diskus INH SCH (08:14)
[2016-12-30] MEDS: cefTRIAXone 1 GM in Sodium Chloride 0.9% 100 ML IV SCH (08:16)
[2016-12-30] MEDS ORDERED: Furosemide 20 MG/2 ML VIAL IVPUSH ONE (08:45)
[2016-12-30] MEDS: Azithromycin 500 MG in Sodium Chloride 0.9% 250 ML IV SCH (09:06)
[2016-12-30] MEDS ORDERED: Midazolam 1 MG/ML 5 ML SDV ONE (10:00)
[2016-12-30] MEDS ORDERED: Succinylcholine 200 MG/10 ML MDV ONE (10:00)
--- NOTE | 2016-12-30 10:26 | CT ---
DATE OF SERVICE: 12/28/16 CLINICAL DATA: Lung cancer and RUQ pain altered liver functions UNENHANCED CHEST CT: Multislice acquisition through the chest without IV contrast was performed. No priors. There is mass-like fullness in the right hilum. There are also surgical clips adjacent to the right hilum. There is a grossly enlarged retrocaval pretracheal lymph node. There are also enlarged nodes noted in the precarinal space and subcarinal middle mediastinum. Metastatic adenopathy is assumed. There is extensive infiltrate and consolidation in the right perihilar region and right lower lobe. There is a small right pleural effusion. Pneumonia cannot be excluded. There are emphysematous changes throughout the left lung. There are mild atelectatic changes in the left lung base. The left lung is otherwise clear. No pneumothorax. The heart size is normal. No other significant findings. UNENHANCED ABDOMEN AND PELVIC CT: Multislice acquisition through the abdomen and pelvis without IV or oral contrast was performed. No priors. Breathing motion artifact degrades image quality. The unenhanced liver is homogeneous in attenuation. No focal hepatic lesions. The gallbladder is partially contracted. It appears grossly normal. The spleen appears grossly normal. The pancreas appears grossly normal. The right and left adrenals appear normal. The right and left kidneys appear grossly normal. No nephrocalcinosis or nephrolithiasis. No hydronephrosis or hydroureter. The bladder is fluid-filled and appears normal. No free air. No free fluid. No dilated loops of bowel. No adenopathy. No aortic aneurysm. There is a moderate amount of stool noted in the right colon. IMPRESSION: Suboptimal exam related to motion artifact. No acute abnormalities. [id number] [facility]
--- NOTE | 2016-12-30 10:55 | PCM.DCSUM1 ---
Discharge Summary - Hospital Course Free Text/Narrative:: Pt was admitted with right lobe pneumonia with hypoxia. She was started on IV Zithromax and Rocephin. Pt did have sinus tachycardia, her troponin was negative and had no cardiac symptoms other than SOB. Pt has h/o severe COPD with Pneumonia, which was considered to be the cause of her SOB. Day 1(12/28/16) Pt was feeling better, no SOB. mild cough.Clear mucoid sputum.She was tolerating diet and also her O2 requirement was down to 2 litres. Was doing well on incentive spirometry up 1000cc. Also her liver enzymes were elevated,on admission. Considering her history of adenocarcinoma of lung and elevated liver function, and patient being new to me , I did get CT chest and abdomen done. Ct shows 4 cm mediastinal node and mild hepatomegally. with right lobe infiltrate. Pt clinical was doing well. Hence present regime continued. HBSAG and Hep C antibody sent out. Day2 ( 12/29/16)Pt claims she is better, cough and getting more sputum. No hemoptysis. No SOB. Working on spirometer. White count is down to 11K. HAs uneventful day. On IV antibiotics. Day3: I did get nurse call around 8 Am claiming pt is diaphoretic and short of breath and not able to keep her SPO2 down. On exam , pt is tachypnec and diaphoretic and hypoxic. She did recieve 1mg morphine for anxiety. Repeat Chest Xray done, which shows opacity of the right hemithorax. Apparently pt is in respiratory distress. She need intubation and transfer to higher level of care. Did contact [facility] and discussed with Dr. Haq , who recommended [id number] to Different facility as they do not have artist's manager or surgical assistant certified available this week end. hence I did contact [facility] and discuss with Hospitalist Dr. Macias, patient condition. He did agree to accept patient. Pt has been successfully intubated and her SPO2 is up into 100%. Pt's vitals are stable. Pt is transferred to [facility] under care of Dr. Macias. Brief History: Pesented to emergency room on 12/27/16 with Shiortness of breath for 2 wks, gradually getting worse. Kindly see H&P - Discharge Data Discharge Date: 12/30/16 Discharge Disposition: DC/Tfer to Acute Hospital 02 Condition: Good - Discharge Diagnosis/Problem(s) (1) Liver function abnormality SNOMED Code(s): 70296444 ICD Code: K76.89 - OTHER SPECIFIED DISEASES OF LIVER Status: Acute Current Visit: Yes (2) Pneumonia SNOMED Code(s): 495718627 ICD Code: J18.9 - PNEUMONIA, UNSPECIFIED ORGANISM Status: Acute Current Visit: Yes - Patient Summary/Data Hospital Course: Pt was admitted with right lobe pneumonia with hypoxia. She was started on IV Zithromax and Rocephin. Pt did have sinus tachycardia, her troponin was negative and had no cardiac symptoms other than SOB. Pt has h/o severe COPD with Pneumonia, which was considered to be the cause of her SOB. Day 1(12/28/16) Pt was feeling better, no SOB. mild cough.Clear mucoid sputum.She was tolerating diet and also her O2 requirement was down to 2 litres. Was doing well on incentive spirometry up 1000cc. Also her liver enzymes were elevated,on admission. Considering her history of adenocarcinoma of lung and elevated liver function, and patient being new to me , I did get CT chest and abdomen done. Ct shows 4 cm mediastinal node and mild hepatomegally. with right lobe infiltrate. Pt clinical was doing well. Hence present regime continued. HBSAG and Hep C antibody sent out. Day2 ( 12/29/16)Pt claims she is better, cough and getting more sputum. No hemoptysis. No SOB. Working on spirometer. White count is down to 11K. HAs uneventful day. On IV antibiotics. Day3: I did get nurse call around 8 Am claiming pt is diaphoretic and short of breath and not able to keep her SPO2 down. On exam , pt is tachypnec and diaphoretic and hypoxic. She did recieve 1mg morphine for anxiety. Repeat Chest Xray done, which shows opacity of the right hemithorax. Apparently pt is in respiratory distress. She need intubation and transfer to higher level of care. Did contact [facility] and discussed with Dr. Haq , who recommended [id number] to Different facility as they do not have artist's manager or surgical assistant certified available this week end. hence I did contact [facility] and discuss with Hospitalist Dr. Macias, patient condition. He did agree to accept patient. Pt has been successfully intubated and her SPO2 is up into 100%. Pt's vitals are stable. Pt is transferred to [facility] under care of Dr. Macias. - Discharge Plan Referrals: Radha Pena MD [Primary Care Provider] - - Discharge Summary/Plan Comment DC Time >30 min.: Yes Discharge Summary/Plan Comment: Pt is intubated and has been transferred to [facility] under care of Dr. Macias by air ambulance. - General Info Date of Service: 12/30/16 Subjective Update: Nurse call to evalaute patient as hshe has been restless and not able to maintain her O2 sats.Pt is restless, short of breath and tachypnec at rest. No fever or chills. Functional Status: Reports: Pain Controlled, Tolerating Diet - Review of Systems General: Reports: Malaise, Other (rsetless). Denies: Fever, Weakness HEENT: Denies: Sinus Congestion, Sore Throat Pulmonary: Reports: Shortness of Breath, Pleuritic Chest Pain, Cough, Sputum, Wheezing Cardiovascular: Denies: Chest Pain, Lightheadedness Gastrointestinal: Denies: Abdominal Pain, Nausea, Vomiting Genitourinary: Denies: Dysuria, Frequency Musculoskeletal: Denies: Joint Pain, Joint Swelling Skin: Denies: Pruritis, Rash - Patient Data Vitals - Most Recent: Last Vital Signs Temp 98.6 F 12/30/16 05:22 Pulse 128 H 12/30/16 08:09 Resp 22 H 12/30/16 05:22 BP 137/68 12/30/16 08:09 Pulse Ox 93 L 12/30/16 06:00 Weight - Most Recent: 73.936 kg I&O - Last 24 hours: Intake & Output 12/29/16 12/30/16 12/30/16 22:59 06:59 14:59 Intake Total 200 Output Total 300 Balance -100 Lab Results - Last 24 hrs: Laboratory Results - last 24 hr 12/30/16 12/30/16 12/30/16 Range/Units 08:50 08:50 09:00 WBC 11.2 H (4.0-11.0) K/uL RBC 4.50 (3.80-5.80) M/uL Hgb 14.0 (11.5-16.5) g/dL Hct 40.6 (37.0-47.0) % MCV 90 (76-96) fL MCH 31.1 (27.0-32.0) pg MCHC 34.5 (31.0-35.0) g/dL RDW 14.6 (11.0-16.0) % Plt Count 109 L (150-500) K/uL MPV 10.4 H (6.0-10.0) fL Neut % (Auto) 79.5 H (45.0-70.0) % Lymph % (Auto) 15.1 L (20.0-40.0) % [place] % (Auto) 4.8 (3.0-10.0) % Eos % (Auto) 0.4 L (1.0-5.0) % Baso % (Auto) 0.2 (0.0-0.5) % Neut # (Auto) 8.88 H (2.00-7.50) K/uL Lymph # (Auto) 1.69 (1.50-4.00) K/uL [place] # (Auto) 0.54 (0.20-0.80) K/uL Eos # (Auto) 0.04 (0.04-0.40) K/uL Baso # (Auto) 0.02 (0.02-0.10) K/uL ABG pH 7.42 (7.35-7.45) ABG pCO2 35.0 (35-45) mmHg ABG pO2 57 L* (80-105) mmHg ABG HCO3 23.3 (22-26) mmol/L ABG O2 Saturation 90 L (95-98) % ABG Base Excess -1 (-2-2) O2 Delivery Device Nasal cannula Lactic Acid (0.90-1.70) mmol/L Total Bilirubin 3.1 H (0.0-1.0) mg/dL Direct Bilirubin 2.6 H (0.0-0.3) mg/dL Indirect Bilirubin 0.5 (<= 0.7) mg/dL AST 335 H (15-37) U/L ALT 115 H (12-78) U/L Alkaline Phosphatase 468 H (46-116) U/L Total Protein 6.1 L (6.4-8.2) g/dL Albumin 2.1 L (3.4-5.0) g/dL Globulin 4.0 (2.2-4.2) g/dL Albumin/Globulin Ratio 0.5 L (0.8-2.0) /08/12 Range/Units 09:00 WBC (4.0-11.0) K/uL RBC (3.80-5.80) M/uL Hgb (11.5-16.5) g/dL Hct (37.0-47.0) % MCV (76-96) fL MCH (27.0-32.0) pg MCHC (31.0-35.0) g/dL RDW (11.0-16.0) % Plt Count (150-500) K/uL MPV (6.0-10.0) fL Neut % (Auto) (45.0-70.0) % Lymph % (Auto) (20.0-40.0) % [place] % (Auto) (3.0-10.0) % Eos % (Auto) (1.0-5.0) % Baso % (Auto) (0.0-0.5) % Neut # (Auto) (2.00-7.50) K/uL Lymph # (Auto) (1.50-4.00) K/uL [place] # (Auto) (0.20-0.80) K/uL Eos # (Auto) (0.04-0.40) K/uL Baso # (Auto) (0.02-0.10) K/uL ABG pH (7.35-7.45) ABG pCO2 (35-45) mmHg ABG pO2 (80-105) mmHg ABG HCO3 (22-26) mmol/L ABG O2 Saturation (95-98) % ABG Base Excess (-2-2) O2 Delivery Device Lactic Acid 2.05 H (0.90-1.70) mmol/L Total Bilirubin (0.0-1.0) mg/dL Direct Bilirubin (0.0-0.3) mg/dL Indirect Bilirubin (<= 0.7) mg/dL AST (15-37) U/L ALT (12-78) U/L Alkaline Phosphatase (46-116) U/L Total Protein (6.4-8.2) g/dL Albumin (3.4-5.0) g/dL Globulin (2.2-4.2) g/dL Albumin/Globulin Ratio (0.8-2.0) LEÓN Results - Last 24 hrs: Microbiology 12/28/16 09:10 MRSA Surveillance Culture - Final Nose, Unspecified NO MRSA ISOLATED Med Orders - Current: Current Medications Albuterol (Ventolin Hfa) 8 gm INH Q4H PRN PRN Reason: Shortness of Breath Last Admin: 12/29/16 23:32 Dose: 2 puff Albuterol/Ipratropium (Duoneb 3.0-0.5 Mg/3 Ml) 3 ml NEB Q2H PRN PRN Reason: Shortness of Breath Amitriptyline HCl (Elavil) 100 mg PO BEDTIME [facility] Last Admin: 12/29/16 20:28 Dose: 100 mg Aspirin (Halfprin) 81 mg PO DAILY [facility] Last Admin: 12/30/16 08:12 Dose: 81 mg Calcium Carbonate (Caltrate 600+D 1500 Mg-400 Units) 1 tab PO DAILY [facility] Last Admin: 12/30/16 08:13 Dose: 1 tab Guaifenesin (Robitussin) 400 mg PO Q6H PRN PRN Reason: cough Azithromycin 500 mg/ Sodium (Chloride) 250 mls @ 250 mls/hr IV DAILY [facility] Last Admin: 12/30/16 09:06 Dose: 250 mls/hr Ceftriaxone Sodium 1 gm/ (Sodium Chloride) 100 mls @ 200 mls/hr IV BID [facility] Last Admin: 12/30/16 08:16 Dose: 200 mls/hr Lorazepam (Ativan) 1 mg PO BEDTIME PRN PRN Reason: Sleep Last Admin: 12/29/16 23:27 Dose: 1 mg Metoprolol Tartrate (Lopressor) 25 mg PO Q12HR [facility] Last Admin: 12/30/16 08:09 Dose: 25 mg Morphine Sulfate (Morphine) 1 mg IVPUSH Q2H [facility] Last Admin: 12/30/16 08:15 Dose: 1 mg Multivitamins/Minerals (Thera M Plus) 1 tab PO DAILY [facility] Last Admin: 12/30/16 08:12 Dose: 1 tab Nystatin (Mycostatin) 5 ml PO QID [facility] Last Admin: 12/30/16 08:12 Dose: 5 ml Omeprazole (Omeprazole) 40 mg PO ACBREAKFAST [facility] Last Admin: 12/30/16 06:46 Dose: 40 mg Oxycodone HCl (Oxycodone) 5 mg PO Q6H PRN PRN Reason: Pain Last Admin: 12/29/16 23:27 Dose: 5 mg Pravastatin Sodium (Pravachol) 80 mg PO BEDTIME [facility] Last Admin: 12/29/16 20:27 Dose: 80 mg Roflumilast (Daliresp) 500 mcg PO DAILY [facility] Last Admin: 12/30/16 08:12 Dose: 500 mcg Fluticasone/Salmeterol (Advair Diskus 500-50) 1 puff INH BID [facility] Last Admin: 12/30/16 08:14 Dose: 1 puff Sertraline HCl (Zoloft) 100 mg PO DAILY [facility] Last Admin: 12/30/16 08:13 Dose: 100 mg Sodium Chloride (Saline Flush) 10 ml FLUSH ASDIRECTED PRN PRN Reason: Keep Vein Open Last Admin: 12/29/16 20:51 Dose: 10 ml Tiotropium [place] (Spiriva Handihaler) 18 mcg INH DAILY [facility] Last Admin: 12/30/16 08:14 Dose: 1 inhalation Discontinued Medications Hydrocodone Bitart/Acetaminophen ([place] 325-10 Mg) 1 tab PO Q6H PRN PRN Reason: MODERATE PAIN Last Admin: 12/28/16 13:30 Dose: 1 tab Albuterol/Ipratropium (Duoneb 3.0-0.5 Mg/3 Ml) 3 ml NEB ONETIME ONE Stop: 12/28/16 16:59 Last Admin: 12/28/16 17:09 Dose: 3 ml Albuterol/Ipratropium (Duoneb 3.0-0.5 Mg/3 Ml) Confirm Administered Dose 3 ml .ROUTE .STK-MED ONE Stop: 12/28/16 17:02 Last Admin: 12/28/16 17:08 Dose: Not Given Albuterol/Ipratropium (Duoneb 3.0-0.5 Mg/3 Ml) Confirm Administered Dose 3 ml .ROUTE .STK-MED ONE Stop: 12/30/16 07:34 Diclofenac Sodium (Voltaren 1% Gel) 100 gm TOP BID [facility] Furosemide (Lasix) 10 mg IVPUSH ONETIME ONE Stop: 12/30/16 08:46 Last Admin: 12/30/16 09:06 Dose: 10 mg Guaifenesin (Robitussin) 400 mg PO Q6H [facility] Last Admin: 12/27/16 15:33 Dose: Not Given Azithromycin 500 mg/ Sodium (Chloride) 250 mls @ 250 mls/hr IV Q24H [facility] Last Admin: 12/27/16 15:33 Dose: Not Given Ceftriaxone Sodium 1 gm/ (Sodium Chloride) 50 mls @ 100 mls/hr IV Q12H [facility] Last Admin: 12/27/16 15:33 Dose: Not Given Ceftriaxone Sodium 1 gm/ (Sodium Chloride) 100 mls @ 200 mls/hr IV Q12H [facility] Last Admin: 12/27/16 15:33 Dose: Not Given Azithromycin 500 mg/ Sodium (Chloride) 250 mls @ 250 mls/hr IV ASDIRECTED [facility] Stop: 12/27/16 18:00 Last Admin: 12/27/16 15:15 Dose: 250 mls/hr Ceftriaxone Sodium 1 gm/ (Sodium Chloride) 100 mls @ 200 mls/hr IV ASDIRECTED [facility] Stop: 12/27/16 18:00 Last Admin: 12/27/16 14:35 Dose: 200 mls/hr Metoprolol Tartrate (Lopressor) 25 mg PO ONETIME ONE Stop: 12/27/16 10:46 Last Admin: 12/27/16 10:45 Dose: 25 mg Metoprolol Tartrate (Lopressor) Confirm Administered Dose 25 mg .ROUTE .STK-MED ONE Stop: 12/28/16 09:05 Last Admin: 12/28/16 17:41 Dose: Not Given Morphine Sulfate (Morphine) Confirm Administered Dose 2 mg .ROUTE .STK-MED ONE Stop: 12/30/16 07:33 Sertraline HCl (Zoloft) 50 mg PO DAILY [facility] - Exam General: Reports: Alert, Severe Distress, Other (anxious) HEENT: Reports: Pupils Equal, Pupils Reactive, EOMI, Mucous Membr. Moist/[place] Neck: Reports: Supple Lungs: Reports: Decreased Breath Sounds (significatnly decrease airentry right hemithorax) Cardiovascular: Reports: Regular Rhythm, Tachycardia GI/Abdominal Exam: Normal Bowel Sounds, Soft, Non-Tender, No Organomegaly, No Distention, No Abnormal Bruit, No Mass, Pelvis Stable Extremities: Normal Inspection, Pedal Edema (1+) *Q Meaningful Use (DIS) - VTE *Q VTE Criteria *Q: - Stroke *Q Stroke Criteria *Q: - AMI *Q AMI Criteria *Q:
--- NOTE | 2016-12-30 11:55 | CR ---
DATE OF SERVICE: 12/30/16 CLINICAL DATA: CHECK TUBE PLACEMENT PORTABLE CHEST: Comparison is made to a prior exam from earlier in the day. An endotracheal tube has been inserted and its distal tip is 3 cm above the alyson. The exam is otherwise unchanged from the prior. [id number] [facility]
[2016-12-30] MEDS ORDERED: Succinylcholine 200 MG/10 ML MDV IV STA (15:10)
[2016-12-30] MEDS ORDERED: Midazolam 1 MG/ML 10 ML MDV IVPUSH ONE (15:10)
[2016-12-30 19:17] VITALS: BP 133/64
--- NOTE | 2016-12-31 07:13 | CR ---
DATE OF SERVICE: 12/30/2016 CLINICAL DATA: Shortness of breath. AP PORTABLE CHEST Comparison is made to a prior exam dated 12/27/2016. There is progressive atelectasis with progressive infiltrate and consolidation of the right lung, when compared to the prior. There is progressive increased density in the left lung base on today's exam. The exam is otherwise unchanged. Continued followup is recommended. [id number] [facility]
== END 2016-12-30 11:02 | DRG 194 ==
LOC: LB.ED 10:36 → LB.MS 12:19
PROVIDERS: ADMIT Family Medicine; ATTEND Family Medicine
DX: J18.9 Pneumonia, unspecified organism (principal); B37.0 Candidal stomatitis; R09.02 Hypoxemia; R94.5 Abnormal results of liver function studies; R06.09 Other forms of dyspnea; R00.0 Tachycardia, unspecified; Z85.118 Personal history of other malignant neoplasm of bronchus and lung; Z66 Do not resuscitate; Z90.2 Acquired absence of lung [part of]
CPT/HCPCS: 36415; 71010; 80053; 83880; 84443; 84484; 85025; 93005; 99285; A9270; 36600; 71250; 74176; 80076; 81001; 82803; 83605; 86803; 87040; 87340; J0330; J0456; J0696; J1940; J2250; J2270; J3490; J7030; J7050; J7620